=== PATIENT | male | born 1960 | race Caucasian/White ===

== ENCOUNTER 2016-08-10 07:44 | Emergency (ER) | payer BC ==
[2016-08-10] MEDS ORDERED: Clindamycin CAP* 150 MG PO ONE (09:06)
--- NOTE | 2016-08-10 09:12 | ED ---
Skin Complaint - HPI Summary HPI Summary: Patient presents with "a boil on his butt" that began a week ago. He has a history of these and is normally able to manage them with warm compresses. This area has not improved with his conservative measures. He feels that it opened and was draining a "brownish pus" several days ago but it is still quite painful. He denies fever, increasing redness or continued drainage. - History of Current Complaint Chief Complaint: EDRashSkinAbscess Time Seen by Provider: 08/10/16 08:08 Stated Complaint: ABSCESS Hx Obtained From: Patient, Family/Wharf [employer] Onset/Duration: Started Weeks Ago - 1, Atraumatic, Still Present Timing: Constant Onset Severity: Moderate Current Severity: Severe Pain Intensity: 10 Skin Location: Other: - right buttock Character: Swelling, Pain, Redness Aggravating Symptom(s): Touch Alleviating Symptom(s): Nothing Associated Signs & Symptoms: Tenderness - Allergy/Home Medications Allergies/Adverse Reactions: Allergies Allergy/AdvReac Type Severity Reaction Status Date / Time Penicillins Allergy Severe DIFFICULTY Verified 07/26/12 06:43 BREATHING/HIVES PMH/Surg Hx/FS Hx/Imm Hx Cardiovascular History: Reports: Hx Hypertension Denies: Hx Pacemaker/ICD Respiratory History: Reports: Hx Asthma Comment Only: Hx Chronic Obstructive Pulmonary Disease (COPD) - suspected, Hx Sleep Apnea - pt states possibly GI History: Reports: Hx Gastroesophageal Reflux Disease, Other GI Disorders - GERD Musculoskeletal History: Reports: Hx Arthritis - in back, Other Musculoskeletal History - CHRONIC BACK PAIN Sensory History: Reports: Hx Contacts or Glasses - glasses Denies: Hx Hearing Aid Opthamlomology History: Reports: Hx Contacts or Glasses - glasses Psychiatric History: Reports: Hx Anxiety - mri anxiety, Hx Depression - under care of Denies: Hx Panic Disorder - Surgical History Surgery Procedure, Year, and Place: Rt KNEE ARTHROSCOPIC; CARIAC CATH -W/O STENTING Hx Anesthesia Reactions: No Infectious Disease History: No Infectious Disease History: Denies: Traveled Outside the [place] in Last 30 Days - Family History Known Family History: Positive: None - Social History Occupation: Unemployed Lives: With Family Alcohol Use: Occasionally Substance Use Type: Reports: None Smoking Status (MU): Current Every Day Smoker Cessation Counseling: Patient Advised to Stop Review of Systems Positive: Other - 3 cm in diameter area of erythema on right buttock All Other Systems Reviewed And Are Negative: Yes Physical Exam Triage Information Reviewed: Yes Vital Signs On Initial Exam: Initial Vitals Temp Pulse Resp BP Pulse Ox 96.2 F 88 20 92/56 98 08/10/16 07:45 08/10/16 07:45 08/10/16 07:45 08/10/16 07:45 08/10/16 07:45 Vital Signs Reviewed: Yes Appearance: Positive: Well-Appearing, Well-Nourished, Pain Distress Skin: Positive: Warm, Skin Color Reflects Adequate Perfusion, Dry, Tender, Soft , Erythema @ - 3 cm in diameter area of erythema with enduration with nickel size area of central fluctuance Head/Face: Positive: Normal Head/Face Inspection Eyes: Positive: EOMI, AMIRAH, Conjunctiva Clear ENT: Positive: Hearing grossly normal Respiratory/Lung Sounds: Positive: Breath Sounds Present Cardiovascular: Positive: RRR Musculoskeletal: Positive: Strength/ROM Intact Neurological: Positive: Sensory/Motor Intact, Alert, Oriented to Person Place, Time, NV Bundle Intact Distally Psychiatric: Positive: Affect/Mood Appropriate AVPU Assessment: Alert - Sy Coma Scale Coma Scale Total: 15 Procedures - Incision and Drainage Site: 3 cm of erythema w/ enduration & nickel size area of fluctuance on R buttoc Anesthesia: Local, Lidocaine Instrument(s): Scalpel Packing: Other - open to drain Diagnostics - Vital Signs Vital Signs Temp Pulse Resp BP Pulse Ox 08/10/16 07:49 96.7 F 80 20 92/56 100 08/10/16 07:45 96.2 F 88 20 92/56 98 - Laboratory Lab Statement: Any lab studies that have been ordered have been reviewed, and results considered in the medical decision making process. Course/Dx - Differential Diagnoses - Skin Complaint Differential Diagnoses: Abscess, Allergic Reaction, Cellulitis, Contact Dermatitis, Local Allergic Reaction, MRSA, VRE - Diagnoses Provider Diagnoses: Abscess Discharge - Discharge Plan Condition: Stable Disposition: HOME Prescriptions: Clindamycin Cap(NF) [Cleocin 300 mg Cap(NF)] 300 mg PO Q6H #39 cap Patient Education Materials: Abscess (ED) Referrals: Oscar Gilliam JR, PA [Primary Care Provider] - Additional Instructions: Please take the antibiotics prescribed until they are completely gone. Continue soaking in warm soapy water several times daily and follow-up with your primary care provider in two days for a wound check.
[2016-08-10 09:55] VITALS: BP 176/136
--- NOTE | 2016-08-11 11:35 | PN ---
Progress Note - Progress Note Note: Diagnosed with cellulitis/abscess. Treated with clindamycin at discharge. Culture results obtained MRSA negative and staph aureus positive. No further action or change needed at this time.
--- NOTE | 2016-08-12 19:18 | ED ---
Progress - Progress Note Progress Note: Pt's wound cx reveals + staph aureus - already started on clindamycin - no change in meds at this time. ALA-PAC Course/Dx - Diagnoses Provider Diagnoses: Abscess
== END 2016-08-10 09:53 | disposition home or self-care (01) ==
LOC: ED 07:44
DX: L02.31 Cutaneous abscess of buttock (principal)
CPT/HCPCS: 10060; 87070; 87077; 87186; 87205; 87640; 87641; 99282; A9270-GY